=== PATIENT | female | born 1960 | race Hispanic/Latino ===

== ENCOUNTER 2021-10-28 09:57 | Outpatient (RCR) | payer BC | END 2021-11-02 | LOC: PT 09:57 | PROVIDERS: ATTEND Specialist | DX: S82.62XD Displaced fracture of lateral malleolus of left fibula, subsequent encounter for closed fracture with routine healing (principal); S93.622D Sprain of tarsometatarsal ligament of left foot, subsequent encounter ==

== ENCOUNTER 2021-11-08 13:00 | Outpatient (RCR) | payer BC | END 2021-12-02 | LOC: PT 13:00 | PROVIDERS: ATTEND Specialist | DX: S82.62XD Displaced fracture of lateral malleolus of left fibula, subsequent encounter for closed fracture with routine healing (principal); S93.622D Sprain of tarsometatarsal ligament of left foot, subsequent encounter ==